=== PATIENT | male | born 1955 | race Hispanic/Latino ===

== ENCOUNTER 2024-06-25 11:13 | Inpatient (IN) | payer OTHER ==
[~2024-06-25] VITALS: Ht 185.4 cm; Wt 80.7 kg
[2024-06-25] VITALS: BP 127/74; PULSE 77; RESP 20; TEMP 98.7
[~2024-06-25 11:13] MED LIST: ALLO300T2 PO; ASPI-556 PO; ATOR40TA69 PO; CLOP75TA32 PO; DICL100G60 TP; DOXY100T2 PO; FLUT16H NS; ISOS30TA92 PO; KETO-99 OP; MONT-39 PO
[2024-06-25 12:20] LABS: BASOPHILS # (AUTO) 0.06 K/uL (0.00-0.20); BASOPHILS % (AUTO) 0.5 % (0.0-5.0); EOSINOPHILS # (AUTO) 0.18 K/uL (0.00-0.70); EOSINOPHILS % (AUTO) 1.4 % (0.0-8.0); HEMATOCRIT 48.5 % (42-54); IMMATURE GRANULOCYTE ABSOLUTE 0.04 K/uL (0-1); LYMPHOCYTES # (AUTO) 2.9 K/uL (1.0-4.8); LYMPHOCYTES % (AUTO) 23.4 % (21.0-51.0); MEAN CORPUSCULAR HEMOGLOBIN 33.6 pg (27.0-33.0); MEAN CORPUSCULAR HGB CONC 34.2 g/dL (32.0-36.0); MEAN CORPUSCULAR VOLUME 98.2 fL (79-99); MONOCYTES # (AUTO) 0.7 K/uL (0.1-1.0); MONOCYTES % (AUTO) 5.6 % (3.0-13.0); NEUTROPHILS # (AUTO) 8.7 K/uL (1.8-7.7); NEUTROPHILS % (AUTO) 68.8 % (40.0-77.0); PLATELET COUNT (AUTO) 300 K/uL (130-400); RED BLOOD CELL COUNT(AUTO) 4.94 MIL/uL (4.50-6.20); RED CELL DISTRIBUTION WIDTH 13.4 % (11.0-15.5); WHITE BLOOD COUNT (AUTO) 12.6 K/uL (4.8-10.8)
[2024-06-25 12:39] LABS: POTASSIUM 3.9 mmol/L (3.5-5.1)
[2024-06-25 12:44] LABS: ALBUMIN 3.8 g/dL (3.5-5.0); BILIRUBIN,TOTAL 0.4 mg/dL (0.2-1.0); TOTAL PROTEIN, SERUM 8.4 g/dL (6.0-8.3)
[2024-06-25] MEDS: HYDROcodone/APAP 5/325 1 TAB TABLET PO ONE (12:53)
[2024-06-25] MEDS: acetaMINOPHEN WITH coDEINE 1 TAB TAB PO ONE (13:10)
[2024-06-25] MEDS ORDERED: IOHEXOL 350 MG/ML 100ML INFUS..BTL IV ONE (15:09)
[2024-06-25] MEDS: CLINDAMYCIN IVPB 600MG/50ML 50 ML IV SCH ×2 (17:02→17:30)
[2024-06-25] MEDS ORDERED: ONDANSETRON 4MG INJ IVP PRN (17:30)
[2024-06-25] MEDS ORDERED: morPHINE 2 MG SYG IVP PRN (17:30)
[2024-06-25] MEDS ORDERED: MAGNESIUM 2GM PREMIX 50ML 50 ML IV PRN (17:30)
[2024-06-25] MEDS ORDERED: KCL 20 MEQ ERTAB PO PRN (17:30)
[2024-06-25] MEDS ORDERED: POTASSIUM CHLORIDE 10% ELIXIR 20 MEQ/15 ML UDCUP PO PRN (17:30)
[2024-06-25] MEDS ORDERED: GLUCAGON 1MG KIT 1 MG ML IM PRN (17:30)
[2024-06-25] MEDS ORDERED: DEXTROSE 50%-WATER 50 ML DISP.SYRIN IV PRN (17:30)
[2024-06-25] MEDS ORDERED: acetaMINOPHEN 325 MG TAB PO PRN ×2 (17:30)
[2024-06-25] MEDS ORDERED: POTASSIUM CHLORIDE 20MEQ/100ML 100 ML IV PRN (17:30)
[2024-06-25] MEDS: NICOTINE 14 MG/ 24 HR PATCH TD SCH (18:30)
[2024-06-25] MEDS: INSULIN humuLIN R 100 UNIT/ML 3ML SQ SCH (21:00)
[2024-06-25 23:00] VITALS: BP 127/74; PULSE 77; RESP 20; TEMP 98.7; O2SAT 97
[2024-06-25] MEDS ORDERED: ASPI-1197 PO (23:37)
[2024-06-25] MEDS ORDERED: PIOG30TA70 PO (23:37)
[2024-06-25] MEDS ORDERED: CILO100T3 PO (23:37)
[2024-06-25] MEDS ORDERED: ALLO100T PO (23:37)
[2024-06-25] MEDS ORDERED: EMPA1TAB7 PO (23:37)
[2024-06-25] MEDS ORDERED: ACET-2123 PO (23:37)
[2024-06-25] MEDS ORDERED: VENL-63 PO (23:37)
[2024-06-25] MEDS ORDERED: PRAV80TA21 PO (23:37)
[2024-06-25] MEDS ORDERED: CLOP75TA32 PO (23:45)
[2024-06-26] VITALS (8 sets, daily range): BP systolic 111–136; BP diastolic 63–84; PULSE 54–77; RESP 19–20; TEMP 98.1–99; O2SAT 97–98
[2024-06-26] MEDS: acetaMINOPHEN WITH coDEINE 1 TAB TAB PO PRN (04:24)
[2024-06-26 05:57] LABS: HEMATOCRIT 42.2 % (42-54); MEAN CORPUSCULAR HEMOGLOBIN 33.1 pg (27.0-33.0); MEAN CORPUSCULAR HGB CONC 33.2 g/dL (32.0-36.0); MEAN CORPUSCULAR VOLUME 99.8 fL (79-99); RED BLOOD CELL COUNT(AUTO) 4.23 MIL/uL (4.50-6.20); RED CELL DISTRIBUTION WIDTH 13.4 % (11.0-15.5); WHITE BLOOD COUNT (AUTO) 11.9 K/uL (4.8-10.8)
[2024-06-26 06:43] LABS: ALBUMIN 3.3 g/dL (3.5-5.0); BILIRUBIN,TOTAL 0.5 mg/dL (0.2-1.0); CREATININE 1.1 mg/dL (0.5-1.3); POTASSIUM 4.7 mmol/L (3.5-5.1); TOTAL PROTEIN, SERUM 7.4 g/dL (6.0-8.3)
[2024-06-26] MEDS: ENOXAPARIN SODIUM 30 MG/0.3 ML SQ SCH (08:42)
[2024-06-26] MEDS: NICOTINE 14 MG/ 24 HR PATCH TD SCH (08:43)
[2024-06-26] MEDS ORDERED: VANCOMYCIN PROTOCOL PER PHARMACY IV SCH (13:30)
[2024-06-26] MEDS: VANCOMYCIN 2GM/500 ML BAG 500 ML IV SCH (13:44)
[2024-06-26] MEDS: ceFEPime HCL 1 GM VIAL IVPB SCH (14:21)
[2024-06-26] MEDS: RIFAMPIN 300 MG CAPSULE PO SCH (20:22)
[2024-06-26] MEDS: VANCOMYCIN 1G/250ML KIT 250 ML IV SCH (21:52)
[2024-06-27] VITALS (8 sets, daily range): BP systolic 123–132; BP diastolic 56–74; PULSE 52–59; RESP 18–20; TEMP 97.6–98.7; O2SAT 98–100
[2024-06-27 06:15] LABS: BASOPHILS # (AUTO) 0.05 K/uL (0.00-0.20); BASOPHILS % (AUTO) 0.5 % (0.0-5.0); EOSINOPHILS # (AUTO) 0.33 K/uL (0.00-0.70); EOSINOPHILS % (AUTO) 3.3 % (0.0-8.0); HEMATOCRIT 40.5 % (42-54); IMMATURE GRANULOCYTE ABSOLUTE 0.05 K/uL (0-1); LYMPHOCYTES # (AUTO) 1.8 K/uL (1.0-4.8); LYMPHOCYTES % (AUTO) 18.1 % (21.0-51.0); MEAN CORPUSCULAR HEMOGLOBIN 33.2 pg (27.0-33.0); MEAN CORPUSCULAR HGB CONC 33.6 g/dL (32.0-36.0); MEAN CORPUSCULAR VOLUME 98.8 fL (79-99); MONOCYTES # (AUTO) 0.7 K/uL (0.1-1.0); MONOCYTES % (AUTO) 6.6 % (3.0-13.0); NEUTROPHILS # (AUTO) 7.1 K/uL (1.8-7.7); PLATELET COUNT (AUTO) 279 K/uL (130-400); RED CELL DISTRIBUTION WIDTH 13.2 % (11.0-15.5)
[2024-06-27 06:30] LABS: ALBUMIN 3.1 g/dL (3.5-5.0); BILIRUBIN,TOTAL 0.6 mg/dL (0.2-1.0); POTASSIUM 4.2 mmol/L (3.5-5.1)
[2024-06-27] MEDS: CILOstazol 100 MG TAB PO SCH (08:20)
[2024-06-27] MEDS: ASPIRIN 81MG CHEW TAB PO SCH (08:20)
[2024-06-27] MEDS: CLOPIDOGREL 75MG TAB PO SCH (08:20)
[2024-06-27 10:58] LABS: INR 1.01 (0.85-1.15); PROTHROMBIN TIME 10.9 SEC (9.6-11.6)
[2024-06-27 10:59] LABS: PARTIAL THROMBOPLASTIN TIME 30.5 SEC (26.3-35.5)
[2024-06-27] MEDS: ceFEPime HCL 1 GM VIAL IVPB SCH (19:00)
[2024-06-27] MEDS: GABAPENTIN 300 MG CAPSULE PO SCH (21:23)
[2024-06-27] MEDS: VANCOMYCIN 1G/250ML KIT 250 ML IV SCH (21:31)
[2024-06-28] VITALS (9 sets, daily range): BP systolic 128–151; BP diastolic 73–79; PULSE 48–65; RESP 17–20; TEMP 97.6–98.5; O2SAT 97–98
[2024-06-28 05:01] LABS: HEMATOCRIT 39.7 % (42-54); MEAN CORPUSCULAR VOLUME 97.8 fL (79-99); RED BLOOD CELL COUNT(AUTO) 4.06 MIL/uL (4.50-6.20); WHITE BLOOD COUNT (AUTO) 8.1 K/uL (4.8-10.8)
[2024-06-28 05:02] LABS: BASOPHILS # (AUTO) 0.04 K/uL (0.00-0.20); BASOPHILS % (AUTO) 0.5 % (0.0-5.0); EOSINOPHILS # (AUTO) 0.34 K/uL (0.00-0.70); EOSINOPHILS % (AUTO) 4.2 % (0.0-8.0); IMMATURE GRANULOCYTE ABSOLUTE 0.03 K/uL (0-1); LYMPHOCYTES # (AUTO) 2.5 K/uL (1.0-4.8); MEAN CORPUSCULAR HGB CONC 33.8 g/dL (32.0-36.0); MONOCYTES # (AUTO) 0.6 K/uL (0.1-1.0); MONOCYTES % (AUTO) 7.6 % (3.0-13.0); NEUTROPHILS # (AUTO) 4.6 K/uL (1.8-7.7); NEUTROPHILS % (AUTO) 56.3 % (40.0-77.0); PLATELET COUNT (AUTO) 290 K/uL (130-400); RED CELL DISTRIBUTION WIDTH 13.2 % (11.0-15.5)
[2024-06-28] MEDS: Solu-medROL 125MG VIAL IVP ONE (20:02)
[2024-06-29] VITALS (9 sets, daily range): BP systolic 126–149; BP diastolic 67–86; PULSE 49–69; RESP 18–20; TEMP 97.5–98.8; O2SAT 97
[2024-06-29 05:07] LABS: BASOPHILS # (AUTO) 0.03 K/uL (0.00-0.20); BASOPHILS % (AUTO) 0.3 % (0.0-5.0); EOSINOPHILS # (AUTO) 0.05 K/uL (0.00-0.70); EOSINOPHILS % (AUTO) 0.5 % (0.0-8.0); HEMATOCRIT 40.9 % (42-54); IMMATURE GRANULOCYTE ABSOLUTE 0.03 K/uL (0-1); LYMPHOCYTES # (AUTO) 2.6 K/uL (1.0-4.8); LYMPHOCYTES % (AUTO) 27.4 % (21.0-51.0); MEAN CORPUSCULAR HEMOGLOBIN 33.1 pg (27.0-33.0); MEAN CORPUSCULAR HGB CONC 34.5 g/dL (32.0-36.0); MONOCYTES # (AUTO) 0.4 K/uL (0.1-1.0); MONOCYTES % (AUTO) 3.7 % (3.0-13.0); NEUTROPHILS # (AUTO) 6.4 K/uL (1.8-7.7); NEUTROPHILS % (AUTO) 67.8 % (40.0-77.0); PLATELET COUNT (AUTO) 290 K/uL (130-400); RED BLOOD CELL COUNT(AUTO) 4.26 MIL/uL (4.50-6.20); RED CELL DISTRIBUTION WIDTH 12.9 % (11.0-15.5); WHITE BLOOD COUNT (AUTO) 9.5 K/uL (4.8-10.8)
[2024-06-29] MEDS: VENLAFAXINE HCL 150 MG PO SCH (08:36)
[2024-06-30] VITALS (8 sets, daily range): BP systolic 122–154; BP diastolic 53–87; PULSE 49–57; RESP 19–20; TEMP 96.3–98; O2SAT 99–100
[2024-07-01] VITALS (8 sets, daily range): BP systolic 105–127; BP diastolic 53–73; PULSE 51–57; RESP 19–20; TEMP 97.1–98.3; O2SAT 98–100
[2024-07-01 03:44] LABS: BASOPHILS # (AUTO) 0.07 K/uL (0.00-0.20); BASOPHILS % (AUTO) 0.7 % (0.0-5.0); EOSINOPHILS # (AUTO) 0.24 K/uL (0.00-0.70); EOSINOPHILS % (AUTO) 2.4 % (0.0-8.0); IMMATURE GRANULOCYTE ABSOLUTE 0.03 K/uL (0-1); LYMPHOCYTES # (AUTO) 3.3 K/uL (1.0-4.8); LYMPHOCYTES % (AUTO) 33.1 % (21.0-51.0); MEAN CORPUSCULAR HGB CONC 33.8 g/dL (32.0-36.0); MEAN CORPUSCULAR VOLUME 97.8 fL (79-99); MONOCYTES # (AUTO) 0.7 K/uL (0.1-1.0); NEUTROPHILS # (AUTO) 5.6 K/uL (1.8-7.7); NEUTROPHILS % (AUTO) 56.5 % (40.0-77.0); PLATELET COUNT (AUTO) 281 K/uL (130-400); RED BLOOD CELL COUNT(AUTO) 4.09 MIL/uL (4.50-6.20); RED CELL DISTRIBUTION WIDTH 13.2 % (11.0-15.5); WHITE BLOOD COUNT (AUTO) 9.8 K/uL (4.8-10.8)
[2024-07-01 04:00] LABS: CREATININE 0.9 mg/dL (0.5-1.3); POTASSIUM 4.2 mmol/L (3.5-5.1); VANCOMYCIN TROUGH 18.3 UG/ML (10.0-20.0)
[2024-07-02] VITALS (23 sets, daily range): BP systolic 104–136; BP diastolic 52–83; PULSE 50–73; RESP 10–20; TEMP 97.8–98.4; O2SAT 98
[2024-07-02] MEDS: VANCOMYCIN 1G/250ML KIT 250 ML IV SCH
[2024-07-02 03:39] LABS: HEMATOCRIT 40.2 % (42-54); MEAN CORPUSCULAR HEMOGLOBIN 33.1 pg (27.0-33.0); MEAN CORPUSCULAR HGB CONC 34.3 g/dL (32.0-36.0); MEAN CORPUSCULAR VOLUME 96.4 fL (79-99); RED BLOOD CELL COUNT(AUTO) 4.17 MIL/uL (4.50-6.20); RED CELL DISTRIBUTION WIDTH 13.1 % (11.0-15.5); WHITE BLOOD COUNT (AUTO) 9.2 K/uL (4.8-10.8)
[2024-07-02 03:49] LABS: CREATININE 0.8 mg/dL (0.5-1.3); POTASSIUM 3.7 mmol/L (3.5-5.1)
[2024-07-02] MEDS ORDERED: 0.9%NACL 1000ML 1,000 ML IV ONE (06:19)
[2024-07-02] MEDS ORDERED: dexaMETHasone SOD PHOSPHATE 10MG/ML 1ML VIAL ONE (06:48)
[2024-07-02] MEDS ORDERED: PHENYLEPHRINE HCL 10 MG/ML 1ML VIAL IV ONE ×2 (06:48→06:52)
[2024-07-02] MEDS ORDERED: LIDOCAINE HCL-MPF 1% 5ML AMP IJ ONE (06:48)
[2024-07-02] MEDS ORDERED: FENTanyl CITRate PF 50 MCG/1 ML 2ML VIAL ONE ×2 (06:49→08:20)
[2024-07-02] MEDS ORDERED: NEOSTIGMINE METHYLSULFATE 1MG/ML IV ONE (06:49)
[2024-07-02] MEDS ORDERED: proPOFol 10 MG/ML 20ML VIAL IV ONE (06:49)
[2024-07-02] MEDS ORDERED: ONDANSETRON 4MG INJ ONE (06:49)
[2024-07-02] MEDS ORDERED: GLYCOPYRROLATE 0.2 MG/ML 5 ML VIAL ONE (06:49)
[2024-07-02] MEDS ORDERED: rocuRONium bROMide 10MG/1ML 5ML VL ONE ×2 (06:50→08:19)
[2024-07-02] MEDS ORDERED: MIDAZOLAM HCL 1 MG/ML 2ML VIAL ONE (06:50)
[2024-07-02] MEDS ORDERED: VANCOMYCIN 1G/250ML KIT 250 ML IV ONE (07:59)
[2024-07-02] MEDS: ROPivacaine 0.5% 5MG/ML 30ML ONE (08:30)
[2024-07-02] MEDS ORDERED: SUGAMMADEX SODIUM 200 MG/2 ML VIAL IV ONE (08:43)
[2024-07-03] VITALS: BP 135/69; PULSE 57; RESP 18; TEMP 98.3
[2024-07-03 00:44] VITALS: O2SAT 99
[2024-07-03 04:00] VITALS: BP 107/57; PULSE 56; RESP 18; TEMP 97.9
[2024-07-03 06:21] LABS: BASOPHILS # (AUTO) 0.05 K/uL (0.00-0.20); BASOPHILS % (AUTO) 0.5 % (0.0-5.0); EOSINOPHILS # (AUTO) 0.26 K/uL (0.00-0.70); EOSINOPHILS % (AUTO) 2.5 % (0.0-8.0); HEMATOCRIT 39.1 % (42-54); IMMATURE GRANULOCYTE ABSOLUTE 0.04 K/uL (0-1); LYMPHOCYTES # (AUTO) 3.4 K/uL (1.0-4.8); LYMPHOCYTES % (AUTO) 32.2 % (21.0-51.0); MEAN CORPUSCULAR HEMOGLOBIN 33.2 pg (27.0-33.0); MEAN CORPUSCULAR VOLUME 97.5 fL (79-99); MONOCYTES # (AUTO) 0.7 K/uL (0.1-1.0); MONOCYTES % (AUTO) 6.2 % (3.0-13.0); NEUTROPHILS # (AUTO) 6.1 K/uL (1.8-7.7); NEUTROPHILS % (AUTO) 58.2 % (40.0-77.0); PLATELET COUNT (AUTO) 255 K/uL (130-400); RED BLOOD CELL COUNT(AUTO) 4.01 MIL/uL (4.50-6.20); RED CELL DISTRIBUTION WIDTH 13.1 % (11.0-15.5); WHITE BLOOD COUNT (AUTO) 10.5 K/uL (4.8-10.8)
[2024-07-03 08:00] VITALS: BP 122/72; PULSE 53; RESP 20; TEMP 97.7
[2024-07-03 08:20] VITALS: O2SAT 98
[2024-07-03 11:49] VITALS: BP 122/64; PULSE 52; RESP 18; TEMP 97.9
== END 2024-07-03 17:05 | disposition home or self-care (01) | DRG 857 ==
LOC: EDH 11:13 → EDHIP 17:25 → 3BH 22:40
PROVIDERS: ADMIT Hospitalist; ATTEND Hospitalist
PROC: 3E023BZ Introduction of Anesthetic Agent into Muscle, Percutaneous Approach (ICD-10-PCS; 2024-07-02)
PROC: 0JBL0ZZ Excision of Right Upper Leg Subcutaneous Tissue and Fascia, Open Approach (ICD-10-PCS; principal; 2024-07-02 07:30)
DX: T81.41XA Infection following a procedure, superficial incisional surgical site, initial encounter (principal); I70.92 Chronic total occlusion of artery of the extremities; L03.115 Cellulitis of right lower limb; L02.415 Cutaneous abscess of right lower limb; E11.51 Type 2 diabetes mellitus with diabetic peripheral angiopathy without gangrene; E78.00 Pure hypercholesterolemia, unspecified; I25.10 Atherosclerotic heart disease of native coronary artery without angina pectoris; E11.42 Type 2 diabetes mellitus with diabetic polyneuropathy; Z96.653 Presence of artificial knee joint, bilateral; E77.8 Other disorders of glycoprotein metabolism; I10 Essential (primary) hypertension; Y83.2 Surgical operation with anastomosis, bypass or graft as the cause of abnormal reaction of the patient, or of later complication, without mention of misadventure at the time of the procedure; E66.01 Morbid (severe) obesity due to excess calories; E11.65 Type 2 diabetes mellitus with hyperglycemia; Z95.5 Presence of coronary angioplasty implant and graft; Z87.891 Personal history of nicotine dependence; Z83.3 Family history of diabetes mellitus; Z79.4 Long term (current) use of insulin
CPT/HCPCS: 36415; 73701; 80048; 80053; 80202; 82948; 83036; 83605; 84443; 85025; 85027; 85610; 85730; 87040; 87070; 87076; 87086; 87186; 93926; 93971; A4606; G0378; J0692; J1100; J1650; J2250; J2270; J2371; J2405; J2704; J2710; J2795; J2919; J3010; J3370; J3490; J7030; Q9967; A4216; A4222; A4223; A4649; A6219; G8980-CH; G8983-CH